=== PATIENT | male | born 1965 ===

== ENCOUNTER 2020-10-12 06:57 | Outpatient (REF) | payer BC, SELFPAY ==
[2020-10-12 07:43] LABS: MANUAL DIFF FLAG NO
[2020-10-12 07:46] LABS: Basophils Absolute Auto 0.1 X10*3/uL (0.0-0.2); Eosinophils Absolute Auto 0.2 X10*3/uL (0.0-0.4); Eosinophils Percent Auto 2.7 % (0-4); Hematocrit 45.1 % (42-52); Hemoglobin 15.2 g/dl (14.0-18.0); Imm Gran Abs Auto 0.03 X10*3/uL (0.00-0.03); Imm Gran Pct Auto 0.4 % (0.0-0.4); Lymphocytes Absolute Auto 2.5 X10*3/uL (1.2-4.9); Mean Corpuscular HGB Conc 33.7 g/dl (31.0-36.0); Mean Corpuscular Hemoglobin 30.2 pg (27.0-33.0); Mean Corpuscular Volume 89.7 fL (80-98); Mean Platelet Volume 10.6 fL (9.4-12.4); Monocytes Absolute Auto 0.7 X10*3/uL (0.1-1.2); Neutrophils Absolute Auto 4.5 X10*3/uL (2.0-8.3); Neutrophils Percent Auto 55.9 % (45-73); Platelet Count 255 X10*3/uL (160-400); Red Blood Count 5.03 X10*6/uL (4.60-5.80); Red Cell Distribution Width 12.3 % (11.0-16.0)
[2020-10-12 08:09] LABS: Alanine Aminotransferase 42 U/L (0-40); Albumin Level 4.4 g/dL (3.5-5.0); Alkaline Phosphatase 58 U/L (39-117); Anion Gap 12 (12-20); Aspartate Amino Transferase 26 U/L (5-37); Bilirubin Total 0.8 mg/dL (0.0-1.0); Blood Urea Nitrogen 16 mg/dL (9-16); Calcium 9.2 mg/dL (8.4-10.2); Carbon Dioxide 27 mmol/L (22-29); Chloride 105 mmol/L (96-108); Cholesterol 198 mg/dL; Estimated Glomerular Filt Rate > 60; Glucose Fasting 86 mg/dL (60-99); HDL Cholesterol 60 mg/dL; LDL Cholesterol Calculated 102 mg/dl; Potassium 4.8 mmol/L (3.3-5.1); Sodium 139 mmol/L (135-145); Total Protein 7.1 g/dL (6.5-8.0); Triglycerides 182 mg/dL
[2020-10-12 08:37] LABS: Thyroid Stimulating Hormone 2.96 uIU/mL (0.32-4.0)
[2020-10-12 08:40] LABS: T4 Thyroxine 4.1 ug/dL (4.5-12.0)
[2020-10-12 10:05] LABS: Folate 14.8 ng/mL (> or = 4.0); Vitamin B12 405 pg/mL (200-900)
== END 2020-10-12 06:58 | disposition home or self-care (01) ==
LOC: HO.LAB 06:57
PROVIDERS: Visit Provider Internal Medicine
DX: Z00.00 Encounter for general adult medical examination without abnormal findings (principal); I10 Essential (primary) hypertension; E78.00 Pure hypercholesterolemia, unspecified; N52.9 Male erectile dysfunction, unspecified
CPT/HCPCS: 36415; 80053; 80061; 82607; 82746; 84436; 84443; 85025

== ENCOUNTER 2020-11-07 08:06 | Outpatient (REF) | payer BC, SELFPAY ==
--- NOTE | ~2020-11-07 | US_ITS ---
EXAMINATION: US ABDOMEN COMPLETE CLINICAL INFORMATION: Abnormal blood chemistry.. COMPARISON: None. TECHNIQUE: Real-time imaging of the abdominal viscera. FINDINGS: PANCREAS: The head and the body of the pancreas is homogeneous in echotexture. The tail is obscured by overlying gas. ABDOMINAL AORTA: The proximal, mid, and distal segments are normal in caliber. INFERIOR VENA CAVA: Visualized portions are normal. LIVER: The liver is diffusely echogenic. The liver is normal in size. The liver contour is normal. No focal hepatic lesion. There is no intrahepatic biliary duct dilatation seen. GALLBLADDER: Normal. The gallbladder is physiologically distended without evidence of stones, sludge, polyps, wall thickening or pericholecystic fluid. COMMON BILE DUCT: Normal in caliber measuring 0.4 cm in diameter. RIGHT KIDNEY: Normal. No hydronephrosis. No renal calculi or focal parenchymal lesions. The kidney measures 10.7 cm in maximum dimension. LEFT KIDNEY: Normal. No hydronephrosis. No renal calculi or focal parenchymal lesions. The kidney measures 11.5 cm in maximum dimension. SPLEEN: Normal. The spleen measures 10.6 cm in maximum dimension. FREE FLUID: None. US/US abdomen complete IMPRESSION: Diffuse hepatic echogenicity without any focal lesion seen. The rest of the abdominal ultrasound is unremarkable.
== END 2020-11-07 08:07 | disposition home or self-care (01) ==
LOC: HO.US 08:06
PROVIDERS: PCP Internal Medicine; Visit Provider Internal Medicine
DX: R79.89 Other specified abnormal findings of blood chemistry (principal)
CPT/HCPCS: 76700

== ENCOUNTER 2021-04-11 10:32 | Outpatient (REF) | payer BC, SELFPAY ==
--- NOTE | ~2021-04-11 | XR_ITS ---
EXAMINATION: XR SHOULDER, RIGHT CLINICAL INFORMATION: Pain COMPARISON: None TECHNIQUE: Three views of the right shoulder. FINDINGS: Bone alignment is normal. No fracture or dislocation is seen. Glenohumeral joint is normal. There is arthritis at the acromioclavicular joint. Soft tissues are unremarkable. XR/XR shoulder RT min 2V IMPRESSION: Arthritis at the acromioclavicular joint.
== END 2021-04-11 10:33 | disposition home or self-care (01) ==
LOC: HO.XRAY 10:32
PROVIDERS: PCP Internal Medicine; Visit Provider Internal Medicine
DX: M25.511 Pain in right shoulder (principal)
CPT/HCPCS: 73030

== ENCOUNTER 2021-09-14 10:53 | Outpatient (REF) | payer BC, SELFPAY ==
[2021-09-14 12:00] LABS: Binax Internal Control QC Valid; Binax Now Covid-19 Ag Negative (Negative)
== END 2021-09-14 10:54 | disposition home or self-care (01) ==
LOC: HO.LAB 10:53
PROVIDERS: Visit Provider Internal Medicine
DX: Z20.822 Contact with and (suspected) exposure to COVID-19 (principal)
CPT/HCPCS: 36415; C9803

== ENCOUNTER 2022-11-18 06:51 | Outpatient (REF) | payer BC, SELFPAY ==
[2022-11-18 07:02] LABS: MANUAL DIFF FLAG NO
[2022-11-18 07:25] LABS: Basophils Absolute Auto 0.1 X10*3/uL (0.0-0.2); Basophils Percent Auto 0.9 % (0-2); Eosinophils Absolute Auto 0.2 X10*3/uL (0.0-0.4); Hematocrit 47.4 % (42.0-52.0); Hemoglobin 15.8 g/dl (14.0-18.0); Imm Gran Abs Auto 0.03 X10*3/uL (0.00-0.03); Imm Gran Pct Auto 0.3 % (0.0-0.4); Lymphocytes Absolute Auto 3.3 X10*3/uL (1.2-4.9); Lymphocytes Percent Auto 33.5 % (20-40); Mean Corpuscular HGB Conc 33.3 g/dl (31.0-36.0); Mean Corpuscular Hemoglobin 29.5 pg (27.0-33.0); Mean Corpuscular Volume 88.6 fL (80.0-98.0); Mean Platelet Volume 10.1 fL (9.4-12.4); Monocytes Absolute Auto 0.9 X10*3/uL (0.1-1.2); Monocytes Percent Auto 8.7 % (2-11); Neutrophils Absolute Auto 5.4 x10*3/uL (2.0-8.3); Neutrophils Percent Auto 54.6 % (45-73); Platelet Count 295 X10*3/uL (160-400); Red Blood Count 5.35 X10*6/uL (4.60-5.80); Red Cell Distribution Width 12.7 % (11.0-16.0); White Blood Count 9.9 X10*3/uL (4.8-10.8)
[2022-11-18 08:02] LABS: Alanine Aminotransferase 43 U/L (0-40); Albumin Level 4.4 g/dL (3.5-5.0); Alkaline Phosphatase 72 U/L (39-117); Anion Gap 12 (12-20); Aspartate Amino Transferase 27 U/L (5-37); Bilirubin Total 0.8 mg/dL (0.0-1.0); Blood Urea Nitrogen 18 mg/dL (9-16); Calcium 9.5 mg/dL (8.4-10.2); Carbon Dioxide 27 mmol/L (22-29); Chloride 107 mmol/L (96-108); Cholesterol 210 mg/dL; Estimated Glomerular Filt Rate > 60; Glucose Random 94 mg/dL (60-115); HDL Cholesterol 55 mg/dL; LDL Cholesterol Calculated 124 mg/dl; Potassium 5.1 mmol/L (3.3-5.1); Sodium 141 mmol/L (135-145); Total Protein 7.2 g/dL (6.5-8.0); Triglycerides 156 mg/dL
[2022-11-18 08:23] LABS: HBS Num1 7.08 mIU/mL (0-7.99); HBc Num1 0.09 S/CO (0.00-0.79); HBsAGNum1 0.28 S/CO (0.00-0.99); Hepatitis B Core Antibody Nonreactive (Nonreactive); Hepatitis B Surface Antigen Negative (Negative); ~HepC Num1 0.32 S/CO (0.00-0.79); ~Hepatitis B Surface Antibody NONREACTIVE (Nonreactive); ~Hepatitis C Antibody Nonreactive (Nonreactive)
[2022-11-18 08:33] LABS: Folate 9.7 ng/mL (> or = 4.0); Free T4 (Free Thyroxine) 0.82 ng/dL (0.71-1.85); Prostate Specific Antigen Scr 0.75 ng/mL (<0.05-4.0); Thyroid Stimulating Hormone 2.95 uIU/mL (0.32-4.0); Vitamin B12 386 pg/mL (200-900)
== END 2022-11-18 06:52 | disposition home or self-care (01) ==
LOC: HO.LAB 06:51
PROVIDERS: PCP Internal Medicine; Visit Provider Internal Medicine
DX: E78.00 Pure hypercholesterolemia, unspecified (principal); R79.89 Other specified abnormal findings of blood chemistry; Z12.5 Encounter for screening for malignant neoplasm of prostate
CPT/HCPCS: 36415; 80053; 80061; 82607; 82746; 84153; 84439; 84443; 85025; 86704; 86706; 86803; 87340

== ENCOUNTER 2023-12-04 15:59 | Outpatient (AMB) | payer BC, SELFPAY ==
[2023-12-04 16:04] VITALS: BP 168/82; PULSE 51; O2SAT 97; BMI 29.4
--- NOTE | 2023-12-04 16:04 | A.OFFPC_ITS ---
Vital Signs 12/04/23 16:04 Height 5 ft 9 in Weight 199 lb 0.2 oz BMI 29.4 BP 168/82 H Blood Pressure Location Lt brachial Position Sitting Pulse 51 Pulse Source Pulse Oximeter Pulse Oximetry (%) 97 Oxygen Delivery Method Room Air Intake Visit Reasons: PE Intake Note: Patient is here today for a physical. 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 Allergies No Known Allergies Allergy (Verified 12/04/23 16:04) Medication List - Last Reconciled 12/04/23 by Ronak Rodriguez MD atorvastatin 40 mg PO DAILY 60 days ketoconazole 2% 1 appl topical BID lisinopril 20 mg PO DAILY 60 days melatonin 3 mg PO BEDTIME PRN miconazole nitrate 2% (Zeasorb AF) 1 appl topical BID sildenafil 100 mg PO DAILY PRN 30 days Tobacco use date assessed: 12/04/23 Dental Screening Dental Screen Date: 12/04/23 Did you have a dental visit in the last 12 months?: Yes Did you have a dental problem in the last 6 months where you did not have access to dental care?: No Was dental information given to patient?: Patient has dentist HPI PE HPI Details 57-year-old overweight male with hyperte nsion hypercholesterolemia fatty liver coming in for physical exam last seen in November 2022. Patient's last colonoscopy was April 2017. [facility] Medical History (Updated 12/23/22 @ 18:07 by Ronak Rodriguez MD) Overweight (BMI 25.0-29.9) Ulnar neuropathy of right upper extremity Carpal tunnel syndrome, right Erectile dysfunction Hypercholesterolemia Hypertension Surgical History History of ankle surgery History of thumb surgery S/P ear surgery S/P rotator cuff repair Family History Father Medical history unknown Depression Mother Medical history unknown Maternal Grandfather Myocardial infarction Social History (Updated 12/04/23 @ 16:34 by Ronak Rodriguez MD) Housing: Apartment Alcohol intake: current Alcohol intake frequency: a few times a month Comment: daily 2 drinks Patient Tobacco Use Status: Former Tobacco user Years Smoked: quit 1979 e-Cigarette/Vaping Use: Never Used Second Hand Smoke Exposure: No Current occupational status: employed Cognitive needs: No Hearing needs: No Vision needs: No Questionnaire PHQ-9 Over the last 2 weeks, how often have you been bothered by any of the following problems? 1. Little interest or pleasure in doing things: not at all 2. Feeling down, depressed, or hopeless: not at all 3. Trouble falling or staying asleep, or sleeping too much: not at all 4. Feeling tired or having little energy: not at all 5. Poor appetite or overeating: not at all 6. Feeling bad about yourself - or that you are a failure or have let yourself or your family down: not at all 7. Trouble concentrating on things, such as reading the newspaper or watching television: not at all 8. Moving or speaking so slowly that other people could have noticed. Or the opposite - being so fidgety or restless that you have been moving around a lot more than usual: not at all 9. Thoughts that you would be better off or of hurting yourself in some way: not at all Total score: 0 Depression Screening Interpretation: Negative Depression Screening Done: Yes 05874 - PHQ-9 Billing: Yes Source: Developed by Drs. Avni Rizvi, Cristina Dos Santos, Jonathan Jarvis and colleagues, with an educational caleb from [employer]. Thrive Questionnaire Date Thrive assessed: 12/04/23 I am a: Patient What is your living situation today?: I have a steady place to live Within the past 12 months, did the food you bought not last and you didn't have the money to get more?: Never true Within the past 12 months, did you worry whether your food would run out before you got money to buy more?: Never true Do you have trouble paying for medicines?: No Do you have trouble getting transportation to medical appointments?: No Do you have trouble paying your heating and electricity bill?: No Do you have trouble taking care of your child, family member or friend?: No Do you have trouble with day-to-day activities such as bathing, preparing meals, shopping, managing finances, etc.?: No Are you currently unemployed and looking for a job?: No Are you interested in more education?: No Please select the resources that you would like help with: None Currently or been in a relationship where the following occur: no concerns reported THRIVE Score: 0 AUDIT C Alcohol Use Questionnaire (AUDIT-C) 1. How often do you have a drink containing alcohol?: 2-3 times a week 2. How many drinks containing alcohol do you have on a typical day when you are drinking?: 1 or 2 3. How often do you have six or more drinks on one occasion?: Never Total Score: 3 CARLOS-7 AMB Questionnaire CARLOS-7 Date CARLOS - 7 assessed: 12/04/23 Feeling nervous, anxious, or on edge: 0 = Not at all Not being able to stop or control worryin = Not at all Worrying too much about different things: 0 = Not at all Trouble relaxin = Not at all Being so restless that it is hard to sit still: 0 = Not at all Becoming easily annoyed or irritable: 0 = Not at all Feeling afraid as if something awful might happen: 0 = Not at all Total CARLOS-7 score (0-4 normal; 5-9 mild; 10-14 moderate; 15-21 severe): 0 Source: Developed by Drs. Avni Rizvi, Cristina Dos Santos, Jonathan Jarvis and colleagues, with an educational caleb from [employer]. CARLOS-7 Assessment Billing CARLOS-7 Assessment Tool: CARLOS-7 Assessment 50894 Review of Systems Const Denies poor appetite and Denies weakness Eyes Denies no additional complaints ENT Reports Normal hearing present, Denies dizziness, Denies nasal congestion, Denies tinnitus and Denies sore throat Card Denies chest pain, Denies syncope, Denies rapid heart rate and Denies dyspnea Resp Denies cough and Denies dyspnea GI Denies change in stool character, Reports constipation, Denies diarrhea, Denies nausea and Denies vomiting Denies dysuria and Denies urinary frequency Neuro Reports Normal hearing present, Denies confusion, Denies dizziness, Denies syncope and Denies weakness Psych Denies confusion Physical exam (Primary Care) Vital Signs: Last Vital Signs Pulse 51 12/04/23 16:04 BP 168/82 H 12/04/23 16:04 Pulse Ox 97 12/04/23 16:04 Oxygen Delivery Method Room Air 12/04/23 16:04 BMI result Body Mass Index 29.4 Tobacco/Smoking Status: Tobacco use Status Tobacco use date assessed 12/04/23 12/04/23 16:05 Patient Tobacco Use Status Former Tobacco user 12/04/23 16:05 e-Cigarette/Vaping Use Never Used 12/04/23 16:05 PHQ-9: PHQ-9 Score PHQ-9: Total score 0 12/04/23 16:05 Depression Screening Interpretation: Negative Thrive Assessment: Date of Thrive Assessment Date Thrive assessed 12/04/23 12/04/23 16:05 Currently or been in a relationship where the following occur: no concerns reported Const General: No confusion Orientation/consciousness: No confusion HENMT Other: impacted cerumen bilateral Head: Yes normocephalic Ears: external ears normal Face and sinus: Yes normal facial exam Mouth: moist mucous membranes Throat: Yes tonsils normal Eyes Conjunctivae: conjunctivae normal Pupils: Equal, round and reactive pupils present and Pupil accommodation reflex normal Direct Ophthalmoscopy: normal light reflex Neck Neck: No lymphadenopathy Thyroid: Thyroid normal Chest Chest palpation & inspection: normal inspection of the chest Resp Effort & Inspection: normal respiratory effort and no audible wheezes Auscultation: clear to auscultation bilaterally, no crackles, no wheezes and lung sounds not diminished Cardio Rate: regular rate Rhythm: regular rhythm Peripheral pulses: radial pulses present and dorsalis pedis present GI Palpation (GI): no masses Auscultation: normal bowel sounds and normoactive bowel sounds Rectal Exam - Male: Yes deferred Skin General skin exam: no rashes or lesions noted Rashes: no rashes Neuro General: No confusion Cranial nerves: Yes Equal, round and reactive pupils present and Yes Normal hearing present Cognition (Neuro): normal cognition Gait exam (Neuro): Normal gait present Motor exam (neuro): 5/5 motor strength present throughout Deep tendon reflexes (DTR's): Right brachioradialis reflex intensity grade: 2+, Left brachioradialis reflex intensity grade: 2+, Right patellar reflex intensity grade: 2+ and Left patellar reflex intensity grade: 2+ Extrem General: No edema Office Procedures Cerumen Removal From which ear canal was the cerumen removed: bilateral Removal: irrigation, otoscope w/curette, cerumen loop/spoon and other Notes: patient tolerated procedure well, no complications and ear canal clear [id number] Irrigation/Lavage Assessment and Plan Assessment & Plan (1) Annual physical exam: Code(s): Z00.00 - Encounter for general adult medical examination without abnormal findings (2) Hypertension: Code(s): I10 - Essential (primary) hypertension Qualifiers: Hypertension type: essential hypertension Qualified Code(s): I10 - Essential (primary) hypertension Plan: Continue with blood pressure medication. Decrease salt intake and exercise patient on lisinopril 20 mg once a day (3) Hypercholesterolemia: Code(s): E78.00 - Pure hypercholesterolemia, unspecified Plan: Avoid fried foods, chicken skin, eggs, butter margarine, pastries and meat. Be it pork or beef they have a lot of cholesterol LDL goal of less than 130 and triglyceride of less than 150 on atorvastatin 40 mg once a day (4) Fatty liver: Code(s): K76.0 - Fatty (change of) liver, not elsewhere classified Plan: Low-fat diet and exercise (5) Impacted cerumen of both ears: Code(s): H61.23 - Impacted cerumen, bilateral Plan: scoop used and irrigation done TM intact Orders: Orders Complete Blood Count Auto Diff Today E78.00 - Pure hypercholesterolemia, unspecified Thyroid Stimulating Hormone Today E78.00 - Pure hypercholesterolemia, unspecified Vitamin B12 and Folate Today E78.00 - Pure hypercholesterolemia, unspecified Comprehensive Met. Panel Today E78.00 - Pure hypercholesterolemia, unspecified Lipid Panel Today E78.00 - Pure hypercholesterolemia, unspecified Free T4 (Free Thyroxine) Today E78.00 - Pure hypercholesterolemia, unspecified Prostate Specific Antigen Scr Today E78.00 - Pure hypercholesterolemia, unspecified Coding Level of Care Code Est Pt Prev Care 40-64y(16975) Diagnoses Annual physical exam Z00.00 Essential hypertension I10 Hypertension type: essential hypertension Hypercholesterolemia E78.00 Fatty liver K76.0 Impacted cerumen of both ears H61.23 CPT Codes Office Procedure - CPT: 66302-Ugl Irrigation/Lavage ([id number]) Additional Codes CARLOS-7 Assessment Billing - CARLOS-7 Assessment Tool: CARLOS-7 Assessment 46525 ([id number])
== END 2023-12-04 16:59 | disposition home or self-care (01) ==
PROVIDERS: Visit Provider Internal Medicine
DX: Z00.00 Encounter for general adult medical examination without abnormal findings (principal); I10 Essential (primary) hypertension; E78.00 Pure hypercholesterolemia, unspecified; K76.0 Fatty (change of) liver, not elsewhere classified; H61.23 Impacted cerumen, bilateral
CPT/HCPCS: 69210; 99396

== ENCOUNTER 2024-01-20 06:43 | Outpatient (REF) | payer BC, SELFPAY ==
[2024-01-20 06:53] LABS: MANUAL DIFF FLAG NO
[2024-01-20 08:02] LABS: Basophils Absolute Auto 0.1 X10*3/uL (0.0-0.2); Basophils Percent Auto 0.9 % (0-2); Eosinophils Absolute Auto 0.1 X10*3/uL (0.0-0.4); Eosinophils Percent Auto 1.2 % (0-4); Hematocrit 44.8 % (42.0-52.0); Hemoglobin 15.2 g/dl (14.0-18.0); Imm Gran Abs Auto 0.05 X10*3/uL (0.00-0.03); Imm Gran Pct Auto 0.5 % (0.0-0.4); Lymphocytes Absolute Auto 2.2 X10*3/uL (1.2-4.9); Lymphocytes Percent Auto 21.5 % (20-40); Mean Corpuscular HGB Conc 33.9 g/dl (31.0-36.0); Mean Corpuscular Hemoglobin 29.9 pg (27.0-33.0); Mean Platelet Volume 10.7 fL (9.4-12.4); Monocytes Percent Auto 9.8 % (2-11); Neutrophils Absolute Auto 6.9 x10*3/uL (2.0-8.3); Neutrophils Percent Auto 66.1 % (45-73); Platelet Count 248 X10*3/uL (160-400); Red Blood Count 5.09 X10*6/uL (4.60-5.80); Red Cell Distribution Width 12.7 % (11.0-16.0); White Blood Count 10.3 X10*3/uL (4.8-10.8)
[2024-01-20 08:38] LABS: Alanine Aminotransferase 34 U/L (0-40); Albumin Level 4.3 g/dL (3.5-5.0); Alkaline Phosphatase 70 U/L (39-117); Anion Gap 15 (12-20); Aspartate Amino Transferase 20 U/L (5-37); Bilirubin Total 0.9 mg/dL (0.0-1.0); Blood Urea Nitrogen 13 mg/dL (9-16); Calcium 9.7 mg/dL (8.4-10.2); Carbon Dioxide 23 mmol/L (22-29); Chloride 106 mmol/L (96-108); Cholesterol 195 mg/dL (<200); Estimated Glomerular Filt Rate > 60; Glucose Random 103 mg/dL (60-115); HDL Cholesterol 55 mg/dL (>40); LDL Cholesterol Calculated 112 mg/dL (<100); Potassium 4.4 mmol/L (3.3-5.1); Sodium 140 mmol/L (135-145); Total Protein 7.4 g/dL (6.5-8.0); Triglycerides 143 mg/dL (<150)
[2024-01-20 09:00] LABS: Free T4 (Free Thyroxine) 0.88 ng/dL (0.71-1.85); Thyroid Stimulating Hormone 2.61 uIU/mL (0.32-4.0)
[2024-01-20 09:04] LABS: Folate 9.4 ng/mL (> or = 4.0); Prostate Specific Antigen Scr 0.83 ng/mL (<0.05-4.0); Vitamin B12 378 pg/mL (200-900)
== END 2024-01-20 06:44 | disposition home or self-care (01) ==
LOC: HO.LAB 06:43
PROVIDERS: PCP Internal Medicine; Visit Provider Internal Medicine
DX: E78.00 Pure hypercholesterolemia, unspecified (principal); Z12.5 Encounter for screening for malignant neoplasm of prostate
CPT/HCPCS: 36415; 80053; 80061; 82607; 82746; 84153; 84439; 84443; 85025

== ENCOUNTER 2024-01-21 11:29 | Outpatient (AMB) | payer BC, SELFPAY ==
[2024-01-21 11:31] VITALS: BP 160/82; PULSE 84; O2SAT 98; BMI 28.9
--- NOTE | 2024-01-21 11:31 | A.OFFPC_ITS ---
Vital Signs 01/21/24 11:31 Height 5 ft 9 in Weight 196 lb BMI 28.9 BP 160/82 H Blood Pressure Location Lt brachial Position Sitting Pulse 84 Pulse Source Pulse Oximeter Pulse Oximetry (%) 98 Oxygen Delivery Method Room Air Intake Visit Reasons: difficulty breathing Machine Filler Required: No Hanging Flags Decorator: Not Required per policy Accompanied by: Self / Same As Patient Allergies No Known Allergies Allergy (Verified 01/21/24 11:31) Tobacco use date assessed: 12/04/23 Dental Screening Dental Screen Date: 12/04/23 HPI difficulty breathing HPI Details 58-year-old overweight male with hypertension hypercholesterolemia fatty liver coming in for an acute problem last seen in November 2023. Patient states during winter had pain L side of the chest but knows this was bruised bruised. this time right-sided chest pain 3 days ago cough , sneeze pain on breathing deep also having pain. Denies any nausea vomiting bowel and bladder symptoms denies any flank pains denies any dysuria.. With the pain on the right side discussed concerns about costochondritis, pneumonia, pain gallbladder pain. [facility] Medical History (Updated 01/21/24 @ 11:45 by Ronak Rodriguez MD) Overweight (BMI 25.0-29.9) Ulnar neuropathy of right upper extremity Carpal tunnel syndrome, right Erectile dysfunction Hypercholesterolemia Hypertension Surgical History History of ankle surgery History of thumb surgery S/P ear surgery S/P rotator cuff repair Family History Father Medical history unknown Depression Mother Medical history unknown Maternal Grandfather Myocardial infarction Social History (Updated 12/04/23 @ 16:34 by Ronak Rodriguez MD) Housing: Apartment Alcohol intake: current Alcohol intake frequency: a few times a month Comment: daily 2 drinks Patient Tobacco Use Status: Former Tobacco user Years Smoked: quit 1979 e-Cigarette/Vaping Use: Never Used Second Hand Smoke Exposure: No Current occupational status: employed Cognitive needs: No Hearing needs: No Vision needs: No Questionnaire Thrive Questionnaire Date Thrive assessed: 12/04/23 CARLOS-7 AMB Questionnaire CARLOS-7 Date CARLOS - 7 assessed: 12/04/23 Source: Developed by Drs. Avni Rizvi, Cristina Dos Santos, Jonathan Jarvis and colleagues, with an educational caleb from [email or web address]. Physical exam (Primary Care) Vital Signs: Last Vital Signs Pulse 84 01/21/24 11:31 BP 160/82 H 01/21/24 11:31 Pulse Ox 98 01/21/24 11:31 Oxygen Delivery Method Room Air 01/21/24 11:31 BMI result Body Mass Index 28.9 Tobacco/Smoking Status: Tobacco use Status Tobacco use date assessed 12/04/23 01/21/24 11:32 Patient Tobacco Use Status Former Tobacco user 01/21/24 11:32 e-Cigarette/Vaping Use Never Used 01/21/24 11:32 Thrive Assessment: Date of Thrive Assessment Date Thrive assessed 12/04/23 01/21/24 11:32 Const General: alert; No acute distress Eyes Conjunctivae: conjunctivae normal Resp Auscultation: clear to auscultation bilaterally Cardio Rate: regular rate Rhythm: regular rhythm GI Other: At the present time patient did not have any pain but points to right sided julia st pain on deep palpation no Browning's no rebound positive bowel sounds not hyperactive no rash noted on the back and no flank pains Extrem General: Yes normal to inspection and No edema Assessment and Plan Assessment & Plan (1) Right-sided chest pain: Code(s): R07.9 - Chest pain, unspecified Plan: With the patient that the pain looks more costochondritis but will do a rib series with a chest x-ray. Concern on the location an ultrasound requested although 2020 ultrasound shows only fatty liver and no cholelithiasis. Declined any pain medication for now. Orders: Orders XR chest 2V Today R07.9 - Chest pain, unspecified XR ribs RT min 3V w CXR1V Today R07.9 - Chest pain, unspecified US abdomen complete Today R07.9 - Chest pain, unspecified, R79.89 - Other specified abnormal findings of blood chemistry Coding Level of Care Code Est Pt Level 3 (75869) Diagnoses Right-sided chest pain R07.9
== END 2024-01-21 11:50 | disposition home or self-care (01) ==
PROVIDERS: PCP Internal Medicine; Visit Provider Internal Medicine
DX: R07.9 Chest pain, unspecified (principal)
CPT/HCPCS: 99213

== ENCOUNTER 2024-01-21 11:54 | Outpatient (REF) | payer BC, SELFPAY ==
--- NOTE | ~2024-01-21 | XR_ITS ---
EXAMINATION: XR RIBS, RIGHT CLINICAL INFORMATION: Chest pain, unspecified Patient states right lower anterior rib pain, no trauma COMPARISON: None available. TECHNIQUE: 3 views of the right ribs were obtained. FINDINGS: A radiopaque skin markers placed adjacent to the right eighth anterior rib. There is probably an old healed fracture of the right 11th lateral rib. No displaced rib fractures. There is question of an expansile cortical lucency along the right 10th posterior rib measuring approximately 4.9 x 2.4 cm. MRI scan could be obtained for further evaluation. XR/XR ribs RT 2V IMPRESSION: 1. No displaced rib fracture. 2. Question of expansile cortical lucency along the right 10th posterior rib measuring approximately 4.9 x 2.4 cm. MRI scan could be obtained for further evaluation.
--- NOTE | ~2024-01-21 | XR_ITS ---
EXAMINATION: XR CHEST CLINICAL INFORMATION: Chest pain. COMPARISON: None available. TECHNIQUE: 2 views of the chest were obtained. FINDINGS: The heart is normal in size. No consolidation. A linear opacity at the left lung base is felt to represent linear atelectasis. No pleural effusion. No pneumothorax. No acute osseous abnormality. XR/XR chest 2V IMPRESSION: No acute cardiopulmonary disease.
== END 2024-01-21 11:55 | disposition home or self-care (01) ==
LOC: HO.XRAY 11:54
PROVIDERS: PCP Internal Medicine; Visit Provider Internal Medicine
DX: R07.9 Chest pain, unspecified (principal)
CPT/HCPCS: 71046; 71100

== ENCOUNTER 2024-01-29 08:01 | Outpatient (REF) | payer BC, SELFPAY ==
--- NOTE | ~2024-01-29 | US_ITS ---
EXAMINATION: US ABDOMEN COMPLETE CLINICAL INFORMATION: Other specified abnormal findings of blood chemistry. COMPARISON: Ultrasound abdomen complete 11/07/2020. TECHNIQUE: Real-time imaging of the abdominal viscera. Limited visualization due to bowel gas. FINDINGS: PANCREAS: Limited visualization of pancreatic tail and head. Imaged portion of pancreatic body is unremarkable. ABDOMINAL AORTA: Imaged portions of the [id number] abdominal aorta are unremarkable. Limited visualization of the distal abdominal aorta. INFERIOR VENA CAVA: Visualized portions are normal. LIVER: Increased hepatic parenchymal heterogeneity and echogenicity could be associated with hepatocellular disease/hepatic steatosis and substantially limits visualization. Correlation with liver function tests and clinical exam recommended to determine further management. The liver contour is normal. GALLBLADDER: No gallstones. COMMON BILE DUCT: Normal in caliber measuring 0.3 cm in diameter. RIGHT KIDNEY: No hydronephrosis. No renal calculi. Limited visualization. The kidney measures 10.7 cm in maximum dimension. LEFT KIDNEY: No hydronephrosis. No renal calculi. Limited visualization. The kidney measures 11.2 cm in maximum dimension. SPLEEN: Normal. The spleen measures 11.2 cm in maximum dimension. FREE FLUID: None. US/US abdomen complete IMPRESSION: Increased hepatic parenchymal heterogeneity and echogenicity could be associated with hepatocellular disease/hepatic steatosis and substantially limits visualization. Correlation with liver function tests and clinical exam recommended to determine further management.
== END 2024-01-29 08:02 | disposition home or self-care (01) ==
LOC: HO.US 08:01
PROVIDERS: PCP Internal Medicine; Visit Provider Internal Medicine
DX: R79.89 Other specified abnormal findings of blood chemistry (principal); R07.9 Chest pain, unspecified
CPT/HCPCS: 76700

== ENCOUNTER 2024-08-13 15:29 | Outpatient (AMB) | payer BC, SELFPAY ==
--- NOTE | 2024-08-13 15:36 | MHC.PC.OV ---
Vital Signs 08/13/24 15:37 Height 5 ft 9 in Weight 194 lb 4 oz BMI 28.7 BP 140/70 H Blood Pressure Location Lt brachial Position Sitting Pulse 68 Pulse Source Pulse Oximeter Pulse Oximetry (%) 97 Oxygen Delivery Method Room Air Intake Visit Reasons: Hypertension Intake Note: Patient is here to follow up on HTN. Biochemistry Technician Required: No Supervisor Communications And Signals: Not Required per policy Accompanied by: Self / Same As Patient Allergies No Known Allergies Allergy (Verified 08/13/24 15:37) Tobacco use date assessed: 08/13/24 Dental Screening Dental Screen Date: 12/04/23 HPI Hypertension HPI Details The patient is a 58-year-old male presenting with hypertension for follow-up. The patient has a history of essential hypertension, hypercholesterolemia, obesity, and hepatic steatosis. The hypertension has been managed with lisinopril, and the patient reports taking the medication regularly. Serial blood pressure monitoring was recommended, but compliance has been inconsistent. Patient noted improvement over the summer with increased physical activity, specifically rowing, but has since reduced exercise due to seasonal constraints. Blood pressure previously noted to have reached 160/90 mmHg. Regarding hypercholesterolemia, prior lab work in January showed LDL cholesterol at 112 mg/dL, within the target range. The patient has been advised to recheck blood work in six months, including prostate-specific antigen levels. An ultrasound in February 2024 confirmed hepatic steatosis. A recent chest and rib X-ray showed no rib fracture but questioned a 4.9 x 2.4 cm expansile cortical lucency on the right 10th posterior rib. An MRI was recommended but not obtained, possibly due to insurance denial. He previously reported no specific symptoms such as right-sided chest pain correlating with the radiographic finding. - Blood pressure target discussed: ideally 120/80 mmHg, avoid >140/90 mmHg. - LDL cholesterol target: <130 mg/dL; current LDL is 112 mg/dL. - Tetanus and flu vaccinations are up to date. - COVID-19 vaccination status is noted, but further vaccines are at the patient's discretion. - Discussed importance of maintaining a healthy diet and consistent exercise. - Advised regular monitoring of blood pressure at home. - Screening lab tests planned for six months, including PSA and lipid panel recheck. - Engages in outdoor activities, including rowing in the summer and cross-country skiing in winter. - Prefers outdoor activities, indicating a higher level of physical engagement during favorable weather conditions. - Consumes a healthy diet and is conscious of reducing high-calorie beverages. - Cardiovascular: Reports stable blood pressure on lisinopril with intermittent home monitoring. - Musculoskeletal: Denies current right chest pain. - General: Recently experienced COVID-19 over the summer. - Labs: LDL cholesterol at 112 mg/dL (January). - Imaging: Ultrasound showing hepatic steatosis (February). Chest and rib X-rays showed no displaced rib fracture but noted a 4.9 x 2.4 cm expansile cortical lucency on the right 10th posterior rib. [facility] Medical History (Updated 08/13/24 @ 15:55 by Ronak Rodriguez MD) Overweight (BMI 25.0-29.9) Ulnar neuropathy of right upper extremity Carpal tunnel syndrome, right Erectile dysfunction Hypercholesterolemia Hypertension Surgical History S/P rotator cuff repair History of thumb surgery S/P ear surgery History of ankle surgery Family History (Updated 08/13/24 @ 15:37 by MICHAEL Jeff) Father Medical history unknown Depression Mother Medical history unknown Maternal Grandfather Myocardial infarction Social History Housing: Apartment Alcohol intake: current Alcohol intake frequency: a few times a month Comment: daily 2 drinks Patient Tobacco Use Status: Former Tobacco user Years Smoked: quit 1979 e-Cigarette/Vaping Use: Never Used Second Hand Smoke Exposure: Yes service: No Current occupational status: employed Cognitive needs: No Hearing needs: No Vision needs: No Questionnaire Thrive Questionnaire Date Thrive assessed: 12/04/23 CARLOS-7 AMB Questionnaire CARLOS-7 Date CARLOS - 7 assessed: 12/04/23 Source: Developed by Drs. Avni Rizvi, Cristina Dos Santos, Jonathan Jarvis and colleagues, with an educational caleb from [employer]. Physical exam (Primary Care) Vital Signs: Last Vital Signs Pulse 68 08/13/24 15:37 BP 140/70 H 08/13/24 15:37 Pulse Ox 97 08/13/24 15:37 Oxygen Delivery Method Room Air 08/13/24 15:37 BMI result Body Mass Index 28.7 Tobacco/Smoking Status: Tobacco use Status Tobacco use date assessed 08/13/24 08/13/24 15:43 Patient Tobacco Use Status Former Tobacco user 08/13/24 15:43 e-Cigarette/Vaping Use Never Used 08/13/24 15:43 Thrive Assessment: Date of Thrive Assessment Date Thrive assessed 12/04/23 08/13/24 15:43 Const General: alert; No acute distress Eyes Conjunctivae: conjunctivae normal Resp Auscultation: clear to auscultation bilaterally Cardio Rate: regular rate Rhythm: regular rhythm GI Inspection: Yes normal to inspection Extrem General: Yes normal to inspection and No edema Coding Level of Care Code Est Pt Level 4 (99207) Diagnoses Essential hypertension I10 Hypertension type: essential hypertension Hypercholesterolemia E78.00 Overweight (BMI 25.0-29.9) E66.3 Fatty liver K76.0 Right-sided chest pain R07.9 Assessment & Plan Assessment & Plan (1) Hypertension: Code(s): I10 - Essential (primary) hypertension Category: Medical Qualifiers: Hypertension type: essential hypertension Qualified Code(s): I10 - Essential (primary) hypertension Plan: continue with lisinopril Continue with blood pressure medication. Decrease salt intake and exercise dicsussed that the BP in the office remained high, need to monitor (2) Hypercholesterolemia: Code(s): E78.00 - Pure hypercholesterolemia, unspecified Category: Medical Plan: Avoid fried foods, chicken skin, eggs, butter margarine, pastries and meat. Be it pork or beef they have a lot of cholesterol on atorvastatin 40 mg once a day (3) Overweight (BMI 25.0-29.9): Code(s): E66.3 - Overweight Category: Medical Plan: Diet and exercise (4) Fatty liver: Code(s): K76.0 - Fatty (change of) liver, not elsewhere classified Category: Medical Plan: Low-fat diet and exercise (5) Right-sided chest pain: Comment: X-ray done in January 2024 No displaced rib fracture. 2. Question of expansile cortical lucency along the right 10th posterior rib measuring approximately 4.9 x 2.4 cm. MRI scan could be obtained for further evaluation. Code(s): R07.9 - Chest pain, unspecified Category: Medical Plan: MR requested declined but the patient is asymptomatic presently Plan - Essential Hypertension: Continue lisinopril. Encourage regular blood pressure monitoring at home and report any readings at or above 140/90 mmHg. - Hypercholesterolemia: Continue current lipid management. Follow up with repeat lipid panel in six months to ensure levels remain within target range. - Hepatic Steatosis: Maintain a healthy diet and regular physical activity. Monitor liver function tests as needed. - Expansile cortical lucency: Consider pursuing insurance approval for an MRI to further evaluate the finding if clinically indicated. Monitor for any new symptoms or changes. - Health Maintenance: Recommended continued physical activity, balanced diet, and appropriate interval follow-up. I discussed with the patient the importance of maintaining optimal blood pressure and cholesterol levels to reduce cardiovascular risk. Encouraged consistent monitoring of blood pressure at home and dietary measures to control hypercholesterolemia and support liver health. We reviewed the ultrasound findings of hepatic steatosis and the radiographic finding of an expansile cortical lucency, suggesting further imaging may be needed for evaluation. We talked about seasonal exercise adjustments and keeping physically active for overall health well-being. - Continue taking lisinopril as prescribed. - Monitor blood pressure at home, aiming for readings below 140/90 mmHg, and report elevated readings. - Follow the recommended diet to support cholesterol and liver health. - Schedule and complete follow-up lab work in six months. - Maintain regular physical activity, mindful of seasonal weather changes. - Schedule follow-up appointment in December. Orders: Orders Thyroid Stimulating Hormone 6 Months E78.00 - Pure hypercholesterolemia, unspecified Vitamin B12 and Folate 6 Months E78.00 - Pure hypercholesterolemia, unspecified Complete Blood Count Auto Diff 6 Months E78.00 - Pure hypercholesterolemia, unspecified Comprehensive Met. Panel 6 Months E78.00 - Pure hypercholesterolemia, unspecified Prostate Specific Antigen Scr 6 Months E78.00 - Pure hypercholesterolemia, unspecified Free T4 (Free Thyroxine) 6 Months E78.00 - Pure hypercholesterolemia, unspecified Lipid Panel 6 Months E78.00 - Pure hypercholesterolemia, unspecified
[2024-08-13 15:37] VITALS: BP 140/70; PULSE 68; O2SAT 97; BMI 28.7
== END 2024-08-13 16:56 | disposition home or self-care (01) ==
PROVIDERS: PCP Internal Medicine; Visit Provider Internal Medicine
DX: I10 Essential (primary) hypertension (principal); E78.00 Pure hypercholesterolemia, unspecified; E66.3 Overweight; K76.0 Fatty (change of) liver, not elsewhere classified; R07.9 Chest pain, unspecified

== ENCOUNTER 2024-12-07 14:22 | Outpatient (AMB) | payer BC, SELFPAY ==
--- NOTE | 2024-12-07 14:24 | MHC.PC.OV ---
Vital Signs 12/07/24 14:26 Height 5 ft 9 in Weight 197 lb 2 oz BMI 29.1 BP 134/74 Blood Pressure Location Lt brachial Position Sitting Pulse 61 Pulse Source Pulse Oximeter Temp 97.5 F Temp Source Temporal Artery Scan Pulse Oximetry (%) 94 Oxygen Delivery Method Room Air Intake Visit Reasons: 1yr f\u Intake Note: Patient is here today for a physical. Conservation Coordinator Required: No Steel Molder: Not Required per policy Accompanied by: Self / Same As Patient Allergies No Known Allergies Allergy (Verified 12/07/24 14:25) Tobacco use date assessed: 12/07/24 Dental Screening Dental Screen Date: 12/07/24 Did you have a dental visit in the last 12 months?: Yes Did you have a dental problem in the last 6 months where you did not have access to dental care?: No Was dental information given to patient?: Patient has dentist [facility] Medical History (Updated 12/07/24 @ 14:53 by Ronak Rodriguez MD) Overweight (BMI 25.0-29.9) Ulnar neuropathy of right upper extremity Carpal tunnel syndrome, right Erectile dysfunction Hypercholesterolemia Hypertension Surgical History S/P rotator cuff repair History of thumb surgery S/P ear surgery History of ankle surgery Family History Father Medical history unknown Depression Mother Medical history unknown Maternal Grandfather Myocardial infarction Social History Housing: Apartment Alcohol intake: current Alcohol intake frequency: a few times a month Comment: daily 2 drinks Patient Tobacco Use Status: Former Tobacco user Years Smoked: quit 1979 e-Cigarette/Vaping Use: Never Used Second Hand Smoke Exposure: Yes service: No Current occupational status: employed Cognitive needs: No Hearing needs: No Vision needs: No Questionnaire PHQ-9 Over the last 2 weeks, how often have you been bothered by any of the following problems? 1. Little interest or pleasure in doing things: not at all 2. Feeling down, depressed, or hopeless: not at all 3. Trouble falling or staying asleep, or sleeping too much: not at all 4. Feeling tired or having little energy: not at all 5. Poor appetite or overeating: not at all 6. Feeling bad about yourself - or that you are a failure or have let yourself or your family down: not at all 7. Trouble concentrating on things, such as reading the newspaper or watching television: not at all 8. Moving or speaking so slowly that other people could have noticed. Or the opposite - being so fidgety or restless that you have been moving around a lot more than usual: not at all 9. Thoughts that you would be better off or of hurting yourself in some way: not at all Total score: 0 Depression Screening Interpretation: Negative Depression Screening Done: Yes Source: Developed by Drs. Avni Rizvi, Cristina Dos Santos, Jonathan Jarvis and colleagues, with an educational caleb from [employer]. Thrive Questionnaire Date Thrive assessed: 12/07/24 I am a: Patient What is your living situation today?: I choose not to answer this question Within the past 12 months, did the food you bought not last and you didn't have the money to get more?: I choose not to answer this question Within the past 12 months, did you worry whether your food would run out before you got money to buy more?: I choose not to answer this question Do you have trouble paying for medicines?: I choose not to answer this question Do you have trouble getting transportation to medical appointments?: I choose not to answer this question Do you have trouble paying your heating and electricity bill?: I choose not to answer this question Do you have trouble taking care of your child, family member or friend?: I choose not to answer this question Do you have trouble with day-to-day activities such as bathing, preparing meals, shopping, managing finances, etc.?: I choose not to answer this question Are you currently unemployed and looking for a job?: I choose not to answer this question Are you interested in more education?: I choose not to answer this question Please select the resources that you would like help with: None Currently or been in a relationship where the following occur: I choose not to answer THRIVE Score: 0 AUDIT C Alcohol Use Questionnaire (AUDIT-C) 1. How often do you have a drink containing alcohol?: 4 or more times a week 2. How many drinks containing alcohol do you have on a typical day when you are drinking?: 1 or 2 3. How often do you have six or more drinks on one occasion?: Never Total Score: 4 CARLOS-7 AMB Questionnaire CARLOS-7 Date CARLOS - 7 assessed: 12/07/24 Feeling nervous, anxious, or on edge: 0 = Not at all Not being able to stop or control worryin = Not at all Worrying too much about different things: 0 = Not at all Trouble relaxin = Not at all Being so restless that it is hard to sit still: 0 = Not at all Becoming easily annoyed or irritable: 0 = Not at all Feeling afraid as if something awful might happen: 0 = Not at all Total CARLOS-7 score (0-4 normal; 5-9 mild; 10-14 moderate; 15-21 severe): 0 Source: Developed by Drs. Avni Rizvi, Cristina Dos Santos, Jonathan Jarvis and colleagues, with an educational caleb from [employer]. Physical exam (Primary Care) Vital Signs: Last Vital Signs Temp 97.5 F 12/07/24 14:26 Pulse 61 12/07/24 14:26 BP 134/74 12/07/24 14:26 Pulse Ox 94 12/07/24 14:26 Oxygen Delivery Method Room Air 12/07/24 14:26 BMI result Body Mass Index 29.1 Tobacco/Smoking Status: Tobacco use Status Tobacco use date assessed 12/07/24 12/07/24 14:31 Patient Tobacco Use Status Former Tobacco user 12/07/24 14:31 e-Cigarette/Vaping Use Never Used 12/07/24 14:31 PHQ-9: PHQ-9 Score PHQ-9: Total score 0 12/07/24 14:51 Depression Screening Interpretation: Negative Thrive Assessment: Date of Thrive Assessment Date Thrive assessed 12/07/24 12/07/24 14:31 Currently or been in a relationship where the following occur: I choose not to answer Const General: alert; No acute distress Eyes Conjunctivae: conjunctivae normal Resp Auscultation: clear to auscultation bilaterally Cardio Rate: regular rate Rhythm: regular rhythm GI Inspection: Yes normal to inspection Extrem General: Yes normal to inspection and No edema Coding Level of Care Code Est Pt Level 4 (83840) Diagnoses Hypercholesterolemia E78.00 Essential hypertension I10 Hypertension type: essential hypertension Overweight (BMI 25.0-29.9) E66.3 Fatty liver K76.0 Left-sided chest pain R07.9 Assessment & Plan Assessment & Plan (1) Hypercholesterolemia: Code(s): E78.00 - Pure hypercholesterolemia, unspecified Category: Medical Plan: Avoid fried foods, chicken skin, eggs, butter margarine, pastries and meat. Be it pork or beef they have a lot of cholesterol LDL goal of less than 130 and triglyceride of less than 150 January 2024 last testing (2) Hypertension: Code(s): I10 - Essential (primary) hypertension Category: Medical Qualifiers: Hypertension type: essential hypertension Qualified Code(s): I10 - Essential (primary) hypertension Plan: Continue with blood pressure medication. Decrease salt intake and exercise on lisinopril 20 mg once a day (3) Overweight (BMI 25.0-29.9): Code(s): E66.3 - Overweight Category: Medical Plan: Diet and exercise (4) Fatty liver: Code(s): K76.0 - Fatty (change of) liver, not elsewhere classified Category: Medical Plan: Advised low-fat diet and exercise (5) Left-sided chest pain: Code(s): R07.9 - Chest pain, unspecified Category: Medical Plan History of Present Illness The patient is a 58-year-old male presenting with concerns of cardiac symptoms. He experienced an episode of left-sided chest discomfort without associated palpitations or dyspnea. This symptom occurred while at rest and resolved spontaneously within approximately 10 minutes. The patient has a history of essential hypertension and hypercholesterolemia, with current management involving lisinopril and lifestyle modifications. Blood tests showed mildly elevated blood glucose and normal liver function, while recent imaging revealed hepatic steatosis. The patient's past concerns include a right-sided chest fracture, distinct from the current left-sided chest sensation. Health Maintenance - LDL cholesterol management goal of less than 130 mg/dL - Triglyceride management goal of less than 150 mg/dL - Last colonoscopy in 2016 - Ultrasound revealing hepatic steatosis in January 2024 - Recent blood test in January 2024 indicating mildly elevated blood sugar Social History - Regular exercise; patient is active and participated in hiking with skiing. - Adherence to a low-fat diet - No need for medication refills currently Review of Systems - Cardiovascular: Reports intermittent left-sided chest discomfort, denies palpitations. - Respiratory: Denies dyspnea. - Genitourinary: Denies issues with urination, reports no swelling in the legs. - Vision: Denies vision problems. Physical Exam - Cardiovascular- Blood pressure noted to be well-controlled. Results - Labs: Mildly elevated blood sugar at 103 mg/dL; normal cholesterol levels, normal electrolytes, liver function, kidney function, prostate, B12, and thyroid levels. - Imaging: Ultrasound in January 2024 showing hepatic steatosis. Plan We plan to conduct a stress test to evaluate the patient's cardiac function, considering the recent episode of chest discomfort and the presence of risk factors like hypertension and hypercholesterolemia. The patient is scheduled for blood work in December to monitor glucose control and cholesterol levels. The current hypertension management with lisinopril and lifestyle modifications will continue. A follow-up appointment is arranged for January to reassess and adjust the management plan based on test results. The patient is instructed to monitor symptoms and seek care if symptoms reoccur. Patient was informed and verbally consented to the use of an ambient scribe for clinic note documentation during this visit. Discussion Notes I discussed with the patient the importance of evaluating his cardiac symptoms, given his cardiovascular risk profile. We agreed on undergoing a stress test to better understand cardiac performance during physical exertion. We also reviewed his blood work, highlighting the mildly elevated blood sugar and confirming that liver and cholesterol levels were within normal limits. We agreed on continuing lisinopril and adhering to dietary and exercise recommendations. I explained the significance of ongoing monitoring of symptoms and the rationale for scheduled follow-up tests in December. The patient is informed of the need to seek care if symptoms reoccur, and he consented to the planned management strategy. Patient Instructions - Proceed with a stress test as scheduled. - Get blood work done during the third week of December. - Continue taking lisinopril 20 mg once daily as prescribed. - Follow a low-fat diet and maintain regular exercise. - Monitor for chest discomfort; seek care if symptoms recur or worsen. - Follow-up appointment in January for further evaluation. Orders: Orders CA stress test Today R07.9 - Chest pain, unspecified
[2024-12-07 14:26] VITALS: BP 134/74; PULSE 61; TEMP 36.4; O2SAT 94; BMI 29.1
== END 2024-12-07 15:02 | disposition home or self-care (01) ==
PROVIDERS: PCP Internal Medicine; Visit Provider Internal Medicine
DX: E78.00 Pure hypercholesterolemia, unspecified (principal); I10 Essential (primary) hypertension; E66.3 Overweight; K76.0 Fatty (change of) liver, not elsewhere classified; R07.9 Chest pain, unspecified

== ENCOUNTER → 2025-01-06 08:04 | Outpatient (REF) | payer BC, SELFPAY ==
--- NOTE | 2025-01-06 08:16 | CA_ITS ---
Acquisition Time: 2025-01-06 08:28:06 Total Exercise Time: 00:11:11 Test Indications: CP Medications: ATORVASTATIN LISINOPRIL Protocol: ALEJANDRA Max HR: 137 BPM 85% of Pred: 161 BPM Max BP: 198/90 mmHG Max Work Load: 13.4 METS Exercise stress test with exercise 11 mins 11 secs of Alejandra Protocol, achieving 85% MPHR, with reports of mild SOB, no chest pain, with isolated PACs and PVCs, with normotensive response to exercise. Without EKG changes meeting criteria for ischemia. In recovery, breathing quickly returned to baseline. Test reviewed with Dr. Rouse. Referred By: Ronak Rodriguez Electronically Signed By: Gil Burdick
[2025-01-06 08:28] LABS: MANUAL DIFF FLAG NO
[2025-01-06 08:50] LABS: Basophils Absolute Auto 0.1 X10*3/uL (0.0-0.2); Basophils Percent Auto 0.9 % (0-2); Eosinophils Absolute Auto 0.1 X10*3/uL (0.0-0.4); Eosinophils Percent Auto 1.4 % (0-4); Hematocrit 44.6 % (42.0-52.0); Hemoglobin 15.3 g/dl (14.0-18.0); Imm Gran Abs Auto 0.02 X10*3/uL (0.00-0.03); Imm Gran Pct Auto 0.2 % (0.0-0.4); Lymphocytes Absolute Auto 2.3 X10*3/uL (1.2-4.9); Lymphocytes Percent Auto 26.6 % (20-40); Mean Corpuscular HGB Conc 34.3 g/dl (31.0-36.0); Mean Corpuscular Hemoglobin 29.9 pg (27.0-33.0); Mean Corpuscular Volume 87.1 fL (80.0-98.0); Mean Platelet Volume 10.2 fL (9.4-12.4); Monocytes Absolute Auto 0.7 X10*3/uL (0.1-1.2); Monocytes Percent Auto 8.2 % (2-11); Neutrophils Absolute Auto 5.4 x10*3/uL (2.0-8.3); Neutrophils Percent Auto 62.7 % (45-73); Platelet Count 252 X10*3/uL (160-400); Red Blood Count 5.12 X10*6/uL (4.60-5.80); Red Cell Distribution Width 12.4 % (11.0-16.0); White Blood Count 8.7 X10*3/uL (4.8-10.8)
[2025-01-06 09:19] LABS: Alanine Aminotransferase 55 U/L (0-40); Albumin Level 4.3 g/dL (3.5-5.0); Alkaline Phosphatase 71 U/L (39-117); Anion Gap 12 (12-20); Aspartate Amino Transferase 33 U/L (5-37); Bilirubin Total 0.6 mg/dL (0.0-1.0); Blood Urea Nitrogen 14 mg/dL (9-16); Calcium 9.4 mg/dL (8.4-10.2); Carbon Dioxide 26 mmol/L (22-29); Chloride 106 mmol/L (96-108); Cholesterol 195 mg/dL (<200); Estimated Glomerular Filt Rate > 60; Glucose Random 105 mg/dL (60-115); HDL Cholesterol 52 mg/dL (>40); LDL Cholesterol Calculated 114 mg/dL (<100); Potassium 4.4 mmol/L (3.3-5.1); Sodium 140 mmol/L (135-145); Total Protein 7.1 g/dL (6.5-8.0); Triglycerides 145 mg/dL (<150)
[2025-01-06 09:34] LABS: Free T4 (Free Thyroxine) 0.77 ng/dL (0.71-1.85); Thyroid Stimulating Hormone 2.58 uIU/mL (0.32-4.0)
[2025-01-06 09:48] LABS: Folate 12.4 ng/mL (> or = 4.0); Prostate Specific Antigen Scr 0.96 ng/mL (<0.05-4.0); Vitamin B12 393 pg/mL (200-900)
== END ==
LOC: HO.CARD 08:04
PROVIDERS: PCP Internal Medicine; Visit Provider Internal Medicine
DX: Z12.5 Encounter for screening for malignant neoplasm of prostate (principal); R07.9 Chest pain, unspecified; E78.00 Pure hypercholesterolemia, unspecified
CPT/HCPCS: 36415; 80053; 80061; 82607; 82746; 84153; 84439; 84443; 85025; 93017

== ENCOUNTER → 2025-01-06 08:16 | Outpatient (BNV) | payer BC, SELFPAY | PROVIDERS: PCP Internal Medicine | DX: I49.1 Atrial premature depolarization (principal); I49.3 Ventricular premature depolarization | CPT/HCPCS: 93016; 93018 ==

== ENCOUNTER 2025-02-10 14:54 | Outpatient (AMB) | payer BC, SELFPAY ==
[2025-02-10 14:57] VITALS: BP 132/84; PULSE 78; O2SAT 97; BMI 28.8
--- NOTE | 2025-02-10 14:57 | A.OFFPC_ITS ---
Vital Signs 02/10/25 14:57 Height 5 ft 9 in Weight 195 lb 6 oz BMI 28.8 BP 132/84 Blood Pressure Location Lt brachial Position Sitting Pulse 78 Pulse Source Pulse Oximeter Pulse Oximetry (%) 97 Oxygen Delivery Method Room Air Intake Visit Reasons: Annual Exam Postal Clerk Required: No Accompanied by: Self / Same As Patient Allergies No Known Allergies Allergy (Verified 02/10/25 14:58) Medication List - Last Reconciled 02/10/25 by Ronak Rodriguez MD atorvastatin 40 mg PO DAILY 60 days ketoconazole 2% 1 appl topical BID lisinopril 20 mg PO DAILY 60 days melatonin 3 mg PO BEDTIME PRN sildenafil 100 mg PO DAILY PRN 30 days Tobacco use date assessed: 02/10/25 Dental Screening Dental Screen Date: 02/10/25 Did you have a dental visit in the last 12 months?: Yes Did you have a dental problem in the last 6 months where you did not have access to dental care?: No Was dental information given to patient?: Patient has dentist [facility] Medical History (Updated 02/10/25 @ 15:17 by Ronak Rodriguez MD) Overweight (BMI 25.0-29.9) Ulnar neuropathy of right upper extremity Carpal tunnel syndrome, right Erectile dysfunction Hypercholesterolemia Hypertension Surgical History S/P rotator cuff repair History of thumb surgery S/P ear surgery History of ankle surgery Family History Father Medical history unknown Depression Mother Medical history unknown Maternal Grandfather Myocardial infarction Social History (Updated 02/10/25 @ 15:19 by Ronak Rodriguez MD) Housing: Apartment Alcohol intake: current Alcohol intake frequency: a few times a month Comment: daily 1 drinks Patient Tobacco Use Status: Former Tobacco user Years Smoked: quit 1979 e-Cigarette/Vaping Use: Never Used Second Hand Smoke Exposure: Yes service: No Current occupational status: employed Cognitive needs: No Hearing needs: No Vision needs: No Questionnaire PHQ-9 Over the last 2 weeks, how often have you been bothered by any of the following problems? 1. Little interest or pleasure in doing things: not at all 2. Feeling down, depressed, or hopeless: not at all 3. Trouble falling or staying asleep, or sleeping too much: not at all 4. Feeling tired or having little energy: not at all 5. Poor appetite or overeating: not at all 6. Feeling bad about yourself - or that you are a failure or have let yourself or your family down: not at all 7. Trouble concentrating on things, such as reading the newspaper or watching television: not at all 8. Moving or speaking so slowly that other people could have noticed. Or the opposite - being so fidgety or restless that you have been moving around a lot more than usual: not at all 9. Thoughts that you would be better off or of hurting yourself in some way: not at all Total score: 0 Depression Screening Interpretation: Negative Depression Screening Done: Yes Source: Developed by Drs. Avni Rizvi, Cristina Dos Santos, Jonathan Jarvis and colleagues, with an educational caleb from [employer]. Thrive Questionnaire Date Thrive assessed: 02/10/25 I am a: Patient What is your living situation today?: I choose not to answer this question Within the past 12 months, did the food you bought not last and you didn't have the money to get more?: I choose not to answer this question Within the past 12 months, did you worry whether your food would run out before you got money to buy more?: I choose not to answer this question Do you have trouble paying for medicines?: I choose not to answer this question Do you have trouble getting transportation to medical appointments?: I choose not to answer this question Do you have trouble paying your heating and electricity bill?: I choose not to answer this question Do you have trouble taking care of your child, family member or friend?: I choose not to answer this question Do you have trouble with day-to-day activities such as bathing, preparing meals, shopping, managing finances, etc.?: I choose not to answer this question Are you currently unemployed and looking for a job?: I choose not to answer this question Are you interested in more education?: I choose not to answer this question Please select the resources that you would like help with: None Currently or been in a relationship where the following occur: I choose not to answer THRIVE Score: 0 AUDIT C Alcohol Use Questionnaire (AUDIT-C) 1. How often do you have a drink containing alcohol?: 4 or more times a week 2. How many drinks containing alcohol do you have on a typical day when you are drinking?: 1 or 2 3. How often do you have six or more drinks on one occasion?: Never Total Score: 4 CARLOS-7 AMB Questionnaire CARLOS-7 Date CARLOS - 7 assessed: 02/10/25 Feeling nervous, anxious, or on edge: 0 = Not at all Not being able to stop or control worryin = Not at all Worrying too much about different things: 0 = Not at all Trouble relaxin = Not at all Being so restless that it is hard to sit still: 0 = Not at all Becoming easily annoyed or irritable: 0 = Not at all Feeling afraid as if something awful might happen: 0 = Not at all Total CARLOS-7 score (0-4 normal; 5-9 mild; 10-14 moderate; 15-21 severe): 0 Source: Developed by Drs. Avni Rizvi, Cristina Dos Santos, Jonathan Jarvis and colleagues, with an educational caleb from [employer]. Review of Systems Const Denies poor appetite and Denies weakness Eyes Denies no additional complaints ENT Reports Normal hearing present, Denies dizziness, Denies nasal congestion, Denies tinnitus and Denies sore throat Card Denies chest pain, Denies syncope, Denies rapid heart rate and Denies dyspnea Resp Denies cough and Denies dyspnea GI Denies change in stool character, Reports constipation, Denies diarrhea, Denies nausea and Denies vomiting Denies dysuria and Denies urinary frequency Neuro Reports Normal hearing present, Denies confusion, Denies dizziness, Denies syncope and Denies weakness Psych Denies confusion Physical exam (Primary Care) Vital Signs: Last Vital Signs Pulse 78 02/10/25 14:57 BP 132/84 02/10/25 14:57 Pulse Ox 97 02/10/25 14:57 Oxygen Delivery Method Room Air 02/10/25 14:57 BMI result Body Mass Index 28.8 Tobacco/Smoking Status: Tobacco use Status Tobacco use date assessed 02/10/25 02/10/25 15:04 Patient Tobacco Use Status Former Tobacco user 02/10/25 15:19 e-Cigarette/Vaping Use Never Used 02/10/25 15:19 PHQ-9: PHQ-9 Score PHQ-9: Total score 0 02/10/25 15:17 Depression Screening Interpretation: Negative Thrive Assessment: Date of Thrive Assessment Date Thrive assessed 02/10/25 02/10/25 15:04 Currently or been in a relationship where the following occur: I choose not to answer Const General: No confusion Orientation/consciousness: No confusion HENMT Head: Yes normocephalic Ears: external ears normal and TM's normal bilaterally Face and sinus: Yes normal facial exam Mouth: moist mucous membranes Throat: Yes tonsils normal Eyes Conjunctivae: conjunctivae normal Pupils: Equal, round and reactive pupils present and Pupil accommodation reflex normal Direct Ophthalmoscopy: normal light reflex Neck Neck: No lymphadenopathy Thyroid: Thyroid normal Chest Chest palpation & inspection: normal inspection of the chest Resp Effort & Inspection: normal respiratory effort and no audible wheezes Auscultation: clear to auscultation bilaterally, no crackles, no wheezes and lung sounds not diminished Cardio Rate: regular rate Rhythm: regular rhythm Peripheral pulses: radial pulses present and dorsalis pedis present GI Other: declined Palpation (GI): no masses Auscultation: normal bowel sounds and normoactive bowel sounds Rectal Exam - Male: Yes deferred Male General Exam: Yes normal external exam Skin General skin exam: no rashes or lesions noted Rashes: no rashes Neuro General: No confusion Cranial nerves: Yes Equal, round and reactive pupils present and Yes Normal hearing present Cognition (Neuro): normal cognition Gait exam (Neuro): Normal gait present Motor exam (neuro): 5/5 motor strength present throughout Deep tendon reflexes (DTR's): Right brachioradialis reflex intensity grade: 2+, Left brachioradialis reflex intensity grade: 2+, Right patellar reflex intensity grade: 2+ and Left patellar reflex intensity grade: 2+ Extrem General: No edema Coding Level of Care Code Est Pt Prev Care 40-64y(17221) Diagnoses Annual physical exam Z00.00 Overweight (BMI 25.0-29.9) E66.3 Essential hypertension I10 Hypertension type: essential hypertension Hypercholesterolemia E78.00 Fatty liver K76.0 Left-sided chest pain R07.9 Assessment & Plan Assessment & Plan (1) Annual physical exam: Code(s): Z00.00 - Encounter for general adult medical examination without abnormal findings Category: Medical Plan: Patient is advised to eat healthy, keep well hydrated, keep active and have elise quate sleep. (2) Overweight (BMI 25.0-29.9): Code(s): E66.3 - Overweight Category: Medical Plan: Diet and exercise (3) Hypertension: Code(s): I10 - Essential (primary) hypertension Category: Medical Qualifiers: Hypertension type: essential hypertension Qualified Code(s): I10 - Essential (primary) hypertension Plan: Continue with blood pressure medication. Decrease salt intake and exercise on lisinopril 20 mg once a day (4) Hypercholesterolemia: Code(s): E78.00 - Pure hypercholesterolemia, unspecified Category: Medical Plan: Avoid fried foods, chicken skin, eggs, butter margarine, pastries and meat. Be it pork or beef they have a lot of cholesterol LDL goal of less than 130 and triglyceride of less than 150. Patient is on atorvastatin 40 mg once a day (5) Fatty liver: Comment: Hepatic steatosis January 2025 Code(s): K76.0 - Fatty (change of) liver, not elsewhere classified Category: Medical Plan: Low-fat diet and exercise (6) Left-sided chest pain: Comment: Stress test done 2024- results Code(s): R07.9 - Chest pain, unspecified Category: Medical Plan: Reassurance Plan History of Present Illness The patient is a 59-year-old male presenting for a routine physical examination with ongoing management of hypertension, hypercholesterolemia, and hepatic steatosis, alongside an evaluation of a previous episode of left-sided chest pain. The chest pain was isolated, with a past stress test yielding negative findings. He maintains an antihypertensive regimen with lisinopril, which has resulted in stable blood pressure readings. Hypercholesterolemia is under management with atorvastatin, with an LDL maintained at an appropriate level of 114 mg/dL. Hepatic steatosis has been identified, prompting a lifestyle intervention through diet and exercise. A recent laboratory assessment showed a mild elevation in fasting glucose, indicating a trend towards glucose intolerance, and a slight rise in liver enzymes while renal function and complete blood count remained normal. The patient's last colorectal screening was in 2017. He continues to engage in regular physical activity and seeks to manage his health proactively. Health Maintenance - Blood pressure management with Lisinopril 20 mg once daily. - Lipid management with Atorvastatin 40 mg once daily; LDL target <130 mg/dL. - Emphasis on diet and exercise for hepatic steatosis. - Stress test performed in January 2025; negative results. - Last colonoscopy done in 2017. - Fasting blood glucose recorded at 105 mg/dL indicating pre-diabetes; advice on sugar intake reduction. - Consideration of shingles vaccination, available at the pharmacy. Social History - Exercises regularly, including biking and hiking. - Consumes alcohol daily but limited to one drink. - Ex-smoker; denies current tobacco use. - Avoids recreational drugs. - Reports healthy bowel movements and no urinary issues. - Regularly active and engages in biking, enjoys outdoor activity without the use of earbuds. Review of Systems - Cardiovascular: Denies chest pain, shortness of breath. - Gastrointestinal: Denies nausea, vomiting, reports regular bowel movements. - Respiratory: Denies dyspnea. - Neurological: Denies dizziness, syncope. - Musculoskeletal: Reports no joint pain. - Endocrine: Denies polyuria, polydipsia. - Eyes/Ears/Nose/Throat: Reports occasional hearing concerns due to earwax buildup; denies vision problems. - Genitourinary: Wakes once nightly to urinate; denies blood in stool. - General: Denies fever, overall good health status. Physical Exam General: Cooperative, healthy appearing, comfortable, no acute distress and well developed Orientation: Patient oriented x3 Limitations: No limitations Head: Normal to inspection Ears: Hearing grossly normal bilaterally, but patient has frequent earwax bu ildup Nose: Normal external nose present Face and sinus: Normal facial exam Eyes: Appearance normal, both eyes and all related structures Neck: Normal visual inspection and Yes full ROM Respiratory: Normal respiratory effort and able to speak in complete sentences. Clear to auscultation bilaterally Cardiovascular: Regular rate and rhythm. Normal S1 and S2 GI: Normal to inspection. Soft to palpation and nontender Skin: No rashes or lesions noted Neuro: Patient oriented x3 Extremities: Normal to inspection Results - Labs: Normal blood count, electrolytes, renal function. Mildly elevated fastin g glucose at 105 mg/dL. Elevated liver enzymes at 55 U/L. - Tests: Stress test from January 2025 negative. Plan The patient's hypertension is managed with lisinopril, ensuring proper control, while atorvastatin is effectively managing hypercholesterolemia. For his hepatic steatosis, we continue to emphasize a low-fat diet and exercise. His glucose levels, indicating pre-diabetes, warrant dietary changes, particularly concerning sugar intake. He was advised on earwax management. Reduction of alcohol intake to one drink per day is maintained. Given the negative stress test results from January 2025, no additional steps regarding chest pain are currently needed. I discussed health maintenance measures, and vaccinations including shingles may be pursued at the pharmacy. Patient was informed and verbally consented to the use of an ambient scribe for clinic note documentation during this visit. Discussion Notes I discussed with the patient the importance of ongoing management of his blood pressure and cholesterol levels using lisinopril and atorvastatin, and the need to maintain a low-fat diet to manage his hepatic steatosis. I advised reducing sugar intake due to pre-diabetic glucose levels, stressing health risks associated with elevated blood glucose, while confirming no immediate procedures were necessary due to negative stress test results. Treatment for earwax buildup was addressed through [id number] options. The benefits, risks, and alternatives for his medication regimen and lifestyle adjustments were explained. I provided advice on modifying alcohol consumption and discussed potential benefits of shingles vaccination, which can be pursued at the pharmacy. Recommended follow-up, judging potential future symptoms, and continued lifestyle interventions rounded out our discussion. Patient Instructions - Continue taking lisinopril and atorvastatin as prescribed. - Follow a low-fat diet and exercise regularly to manage liver health. - Reduce sugar intake to manage blood glucose levels. - Consider using [id number] earwax removal drops. - Limit alcohol consumption to one drink per day. - Consider discussing the shingles vaccine with a pharmacist. - Contact me if you experience any new symptoms or health concerns.
== END 2025-02-10 16:05 | disposition home or self-care (01) ==
LOC: HO.HMCH 14:55
PROVIDERS: PCP Internal Medicine; Visit Provider Internal Medicine
DX: Z00.00 Encounter for general adult medical examination without abnormal findings (principal); E66.3 Overweight; I10 Essential (primary) hypertension; E78.00 Pure hypercholesterolemia, unspecified; K76.0 Fatty (change of) liver, not elsewhere classified; R07.9 Chest pain, unspecified

== ENCOUNTER → 2025-02-10 14:54 | Outpatient (BNVA) | payer BC, SELFPAY | PROVIDERS: PCP Internal Medicine; Visit Provider Internal Medicine | DX: Z13.89 Encounter for screening for other disorder (principal) ==